=== PATIENT | male | born 1995 | race Caucasian/White ===

== ENCOUNTER → 2016-12-04 | Outpatient (CLI) | payer OTHER ==
[~2016-12-04] VITALS: Ht 167.6 cm; Wt 85.7 kg
[~2016-12-04] MED LIST: BENEFIBER98 GM PO; LEXAPRO10 MG PO; METHADONE5 MG PO; OMEPRAZOLE40 M1 PO
== END | disposition home or self-care (01) ==
LOC: AMB 10:05
PROC: 0DJ08ZZ Inspection of Upper Intestinal Tract, Via Natural or Artificial Opening Endoscopic (ICD-10-PCS; principal; 2016-12-04)
DX: K31.89 Other diseases of stomach and duodenum (principal); K31.84 Gastroparesis; R12 Heartburn; R10.13 Epigastric pain; R11.10 Vomiting, unspecified; K21.9 Gastro-esophageal reflux disease without esophagitis; K59.00 Constipation, unspecified; F43.22 Adjustment disorder with anxiety; H91.91 Unspecified hearing loss, right ear; F81.9 Developmental disorder of scholastic skills, unspecified; E66.9 Obesity, unspecified; Z68.30 Body mass index [BMI] 30.0-30.9, adult; F11.10 Opioid abuse, uncomplicated; F17.200 Nicotine dependence, unspecified, uncomplicated; Z80.0 Family history of malignant neoplasm of digestive organs; Z81.8 Family history of other mental and behavioral disorders; Z82.69 Family history of other diseases of the musculoskeletal system and connective tissue; Z82.49 Family history of ischemic heart disease and other diseases of the circulatory system; Z83.3 Family history of diabetes mellitus
CPT/HCPCS: J2250; J3010

== ENCOUNTER → 2017-04-13 | Outpatient (CLI) | payer OTHER | END | disposition home or self-care (01) | LOC: EEG 08:46 | DX: R56.9 Unspecified convulsions (principal) | CPT/HCPCS: 95954 ==